=== PATIENT | male | born 2000 | race Caucasian/White ===

== ENCOUNTER 2023-11-11 00:30 | Emergency (ER) | payer SELFPAY ==
[2023-11-11] VITALS (12 sets, daily range): BP systolic 126–136; BP diastolic 83–96; PULSE 90–108; RESP 15–31; TEMP 36.8; O2SAT 94–99; BMI 26.6
--- NOTE | 2023-11-11 00:35 | ECG_ITS ---
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
--- NOTE | 2023-11-11 00:43 | ED.CHESTPAI1 ---
HPI - Chest Pain General Chief Complaint: Chest Pain Stated Complaint: SOB Time Seen by Provider: 11/11/23 00:37 Source: patient Mode of arrival: ambulance Limitations: no limitations History of Present Illness HPI narrative: patient presents complaining of chest pain. States he was seen at [facility] and diagnosed with pneumonia. States he was started on an antibiotic. At work tonight he felt he was worse with increased chest pain and is now brought to the ER by [employer]. No dyspnea, nausea or vomiting Related Data Home Medications Medication Instructions Recorded Confirmed doxycycline hyclate 100 mg capsule 100 mg PO Q12H 11/11/23 11/11/23 Allergies Allergy/AdvReac Type Severity Reaction Status Date / Time clarithromycin [From Biaxin] Allergy Mild Hives Verified 11/11/23 00:31 Review of Systems ROS Status of ROS 10 or more systems reviewed and unremarkable except as noted in history and below [facility] Social History Smoking status: Current some day smoker Exam Constitutional Vital Signs, click to edit/add: Last Vital Signs Temp 98.2 F 11/11/23 00:31 Pulse 103 H 11/11/23 00:31 Resp 18 11/11/23 00:31 BP 126/96 H 11/11/23 00:31 Pulse Ox 97 11/11/23 00:31 O2 Del Method Room Air 11/11/23 00:31 Common normals: no apparent distress, average body habitus, oriented x3, no limitations, healthy appearing, alert and well nourished [facility] Common normals: normocephalic and head/scalp atraumatic Eye Common normals: PERRL, EOMs intact bilaterally and conjunctivae normal Respiratory Common normals: normal respiratory effort, no retractions and no use of accessory muscles Cardio Common normals: regular rate, regular rhythm, S1 normal heart sound and S2 normal heart sound GI Common normals: Normal to inspection, nondistended, normoactive bowel sounds present, soft to palpation and non-tender Extremity Common normals: normal to inspection and full ROM Neuro Common normals: oriented x3, moves all extremities and no focal motor deficits Psych Appearance: grossly normal Course Vital Signs Vital signs: Vital Signs Temperature 98.2 F 11/11/23 00:31 Pulse Rate 103 H 11/11/23 00:31 Respiratory Rate 18 11/11/23 00:31 Blood Pressure 126/96 H 11/11/23 00:31 Pulse Oximetry 97 11/11/23 00:31 Oxygen Delivery Method Room Air 11/11/23 00:31 Temperature 98.2 F 11/11/23 00:31 Pulse Rate 103 H 11/11/23 00:31 Respiratory Rate 18 11/11/23 00:31 Blood Pressure 126/96 H 11/11/23 00:31 Pulse Oximetry 97 11/11/23 00:31 Oxygen Delivery Method Room Air 11/11/23 00:31 MDM - Chest Pain MDM Narrative Medical decision making narrative: patient presents complaining of chest pain. Workup neg including neg. d-dimer, troponin, and normal cxray. patient asymptomatic while here. Discharged home to follow up with his doctor Lab Data Labs: Lab Results 11/11/23 Range/Units 00:35 WBC 8.9 (4.0-11.0) 10^3/uL RBC 5.61 (4.70-6.10) 10^6/uL Hgb 16.2 (14.0-18.0) g/dL Hct 49.7 (42.0-54.0) % MCV 88.6 (80.0-94.0) fL MCH 28.9 (25.9-34.0) pg MCHC 32.6 (29.9-35.2) g/dL RDW 13.3 (11.0-15.0) % Plt Count 260 (150-450) 10^3/uL MPV 10.1 (9.5-13.5) fL Neut % (Auto) 52.5 (43.0-75.0) % Lymph % (Auto) 34.4 (20.5-60.0) % [place] % (Auto) 7.4 (1.7-12.0) % Eos % (Auto) 4.7 (0.9-7.0) % Baso % (Auto) 0.8 (0.2-2.0) % Neut # (Auto) 4.7 (1.4-6.5) 10^3/uL Lymph # (Auto) 3.1 (1.2-3.8) 10^3/uL [place] # (Auto) 0.7 (0.3-0.8) 10^3/uL Eos # (Auto) 0.4 (0.0-0.7) 10^3/uL Baso # (Auto) 0.1 (0.0-0.1) 10^3/uL Abs Immat Gran (auto) 0.02 (0.00-0.03) 10^3/uL Imm/Tot Granulo (auto) 0.2 (0.0-0.5) % D-Dimer <0.19 (<=0.59) mg/L FEU Sodium 143 (136-145) mmol/L Potassium 4.5 (3.5-5.1) mmol/L Chloride 107 (98-107) mmol/L Carbon Dioxide 27.7 (21.0-32.0) mmol/L Anion Gap 12.8 BUN 21.0 H (7.0-18.0) mg/dL Creatinine 1.10 (0.70-1.30) mg/dL Est GFR ( Amer) >60 (>=60) Est GFR (Non-Af Amer) >60 (>=60) BUN/Creatinine Ratio 19.1 Glucose 95 (74-106) mg/dL Calcium 9.6 (8.5-10.1) mg/dL Troponin I High Sens <4.0 L (4.0-76.1) pg/mL Discharge Plan Discharge Chief Complaint: Chest Pain Clinical Impression: Atypical chest pain Patient Disposition: Home, Self-Care Prescriptions / Home Meds: No Action doxycycline hyclate 100 mg capsule 100 mg PO Q12H Instructions: Noncardiac Chest Pain (ED) Stand Alone Forms: Portal Instructions Referrals: SEGUNDO EWING [Primary Care Provider] - 1 week
--- NOTE | 2023-11-11 00:46 | XR_ITS ---
The [address] [address] Patient Name: MAGO HATHAWAY MRN: [id number] date: 2000 Sex: M Assigned Patient Location: ER Current Patient Location: Accession/Order Number: [id number] Exam Date: 11/11/2023 00:55 Report Date: 11/11/2023 01:15 At the request of: COLIN YA Procedure: XR chest 1V EXAMINATION: XR chest 1V HISTORY: chest pain COMPARISON: None. FINDINGS: Low lung volumes. There is no focal airspace consolidation. There is no appreciable pneumothorax or pleural effusion. The pulmonary vascularity is within normal limits for technique. The cardiomediastinal silhouette is within normal limits. XR/XR chest 1V IMPRESSION: Lungs are clear of airspace consolidation. Electronically authenticated by: MIGUEL A RODRIGUEZ Date: 11/11/2023 01:15
[2023-11-11] MEDS: 0.9 % SODIUM CHLORIDE 1,000 ML 999 ML IV (00:54)
[2023-11-11 00:57] LABS: Basophils Absolute Auto 0.1 10^3/uL (0.0-0.1); Basophils Percent Auto 0.8 % (0.2-2.0); Eosinophils Absolute Auto 0.4 10^3/uL (0.0-0.7); Eosinophils Percent Auto 4.7 % (0.9-7.0); Hematocrit 49.7 % (42.0-54.0); Hemoglobin 16.2 g/dL (14.0-18.0); Immature Granulocytes Abs Auto 0.02 10^3/uL (0.00-0.03); Immature Granulocytes Pct Auto 0.2 % (0.0-0.5); Lymphocytes Absolute Auto 3.1 10^3/uL (1.2-3.8); Lymphocytes Percent Auto 34.4 % (20.5-60.0); Mean Corpuscular HGB Conc 32.6 g/dL (29.9-35.2); Mean Corpuscular Hemoglobin 28.9 pg (25.9-34.0); Mean Corpuscular Volume 88.6 fL (80.0-94.0); Mean Platelet Volume 10.1 fL (9.5-13.5); Monocytes Absolute Auto 0.7 10^3/uL (0.3-0.8); Monocytes Percent Auto 7.4 % (1.7-12.0); Neutrophils Absolute Auto 4.7 10^3/uL (1.4-6.5); Neutrophils Percent Auto 52.5 % (43.0-75.0); Platelet Count 260 10^3/uL (150-450); Red Blood Count 5.61 10^6/uL (4.70-6.10); Red Cell Distribution Width 13.3 % (11.0-15.0); White Blood Count 8.9 10^3/uL (4.0-11.0)
[2023-11-11 01:21] LABS: Anion Gap 12.8; BUN Creatinine Ratio 19.1; Calcium 9.6 mg/dL (8.5-10.1); Carbon Dioxide 27.7 mmol/L (21.0-32.0); Chloride 107 mmol/L (98-107); Estimated GFR (African America >60 (>=60); Estimated GFR (Non-African Ame >60 (>=60); Glucose 95 mg/dL (74-106); Potassium 4.5 mmol/L (3.5-5.1); Sodium 143 mmol/L (136-145); Troponin I High Sensitivity <4.0 pg/mL (4.0-76.1)
[2023-11-11 01:22] LABS: D Dimer <0.19 mg/L FEU (<=0.59)
== END 2023-11-11 02:05 | disposition home or self-care (01) ==
PROVIDERS: Emergency Provider Internal Medicine; PCP Family Medicine
DX: R07.89 Other chest pain (principal); F17.200 Nicotine dependence, unspecified, uncomplicated
CPT/HCPCS: 36415; 71045; 80048; 84484; 85025; 85378; 93005; 99285

== ENCOUNTER 2025-01-14 14:03 | Emergency (ER) | payer SELFPAY ==
[2025-01-14 14:06] VITALS: BP 111/74; PULSE 102; TEMP 36.7; O2SAT 96; BMI 28.2
--- NOTE | 2025-01-14 14:16 | ED.URI1 ---
HPI - URI/Sore Throat General Chief Complaint: Upper Respiratory Infection Stated Complaint: SORE THROAT Time Seen by Provider: 01/14/25 14:16 History of Present Illness HPI Narrative: 24 year old male presents to the ED for a sore throat. Onset was Monday01/12/25. Denies fever, chills, congestion, cough, SOB, difficulty swallowing. Pt appears in no acute distress. Pt is declining testing for Covid-19 and influenza. Related Data Previous Rx's ?Medication ?Instructions ?Recorded prednisone 20 mg tablet 40 mg (2 x 20 mg) PO DAILY 5 days 01/14/25 #10 tabs Allergies Allergy/AdvReac Type Severity Reaction Status Date / Time clarithromycin (From Biaxin) Allergy Mild Hives Verified 01/14/25 14:06 Review of Systems ROS Constitutional Denies: fever or chills Ears, nose, mouth, and throat Reports: throat pain; Denies: neck pain, throat swelling, difficulty swallowing, ear pain, ear discharge, nasal discharge or nasal congestion Cardiovascular Denies: chest pain Respiratory Denies: shortness of breath or cough Gastrointestinal Denies: nausea or vomiting Integumentary/Breast Denies: rash PFSH PFSH Social History Smoking status: Current some day smoker Little interest or pleasure in doing things: not at all Feeling down, depressed, or hopeless: not at all Exam Constitutional Vital Signs, click to edit/add: Last Vital Signs Temp 98.1 F 01/14/25 14:06 Pulse 102 H 01/14/25 14:06 Resp 20 01/14/25 14:06 BP 111/74 01/14/25 14:06 Pulse Ox 96 01/14/25 14:06 O2 Del Method Room Air 01/14/25 14:06 Common normals: no apparent distress and oriented x3 General appearance: cooperative HENFL Common normals: external ears normal and moist oral mucous membranes Face and sinus: normal facial exam Nose: no nasal discharge External ear: external ears normal Mouth: oral and palatal mucosa normal, lip normal and tongue normal Throat: uvula midline, posterior oropharynx abnormal erythema; no cobblstoning and no exudates and postnasal drainage Eye Common normals: conjunctivae normal and no scleral icterus Neck & C-Spine Common normals: supple and no meningeal signs Chest Chest: symmetrical chest wall rise Respiratory Common normals: normal respiratory effort and clear to auscultation bilaterally Effort & inspection: able to speak in complete sentences and symmetric chest movement Cardio Common normals: regular rate and regular rhythm Neuro Common normals: oriented x3 and moves all extremities Sensorium/orientation: awake and alert Speech: speech normal Course Vital Signs Vital signs: Vital Signs Temperature 98.1 F 01/14/25 14:06 Pulse Rate 102 H 01/14/25 14:06 Respiratory Rate 20 01/14/25 14:06 Blood Pressure 111/74 01/14/25 14:06 Pulse Oximetry 96 01/14/25 14:06 Oxygen Delivery Method Room Air 01/14/25 14:06 Temperature 98.1 F 01/14/25 14:06 Pulse Rate 102 H 01/14/25 14:06 Respiratory Rate 20 01/14/25 14:06 Blood Pressure 111/74 01/14/25 14:06 Pulse Oximetry 96 01/14/25 14:06 Oxygen Delivery Method Room Air 01/14/25 14:06 MDM - URI/Sore Throat MDM Narrative Medical decision making narrative: Strep screen was negative. Pt declined Covid-19 and influenza testing. Findings were discussed. A prescription was provided for prednisone. Follow up with pcp for a recheck, further evaluation and treatment. Medical Records Attestation: I reviewed the patient's medical records. Lab Data Attestation: I reviewed the patient's lab results. Labs: Lab Results 01/14/25 Range/Units 14:10 Streptococcus Screen Negative Discharge Plan Discharge Chief Complaint: Upper Respiratory Infection Clinical Impression: Acute viral pharyngitis Patient Disposition: Home, Self-Care Time of Disposition Decision: 14:29 Condition: Good Mode of Transportation: Private Vehicle Prescriptions / Home Meds: New prednisone 20 mg tablet 40 mg PO DAILY 5 Days Qty: 10 0RF Print Language: Icelandic Instructions: Pharyngitis (ED) Additional Instructions: Return to the ER for worsening symptoms. Referrals: SEGUNDO EWING [Primary Care Provider] - 1 week
[2025-01-14 14:26] LABS: Internal Control Within Normal Limits; Strep A Antigen Screen Negative
== END 2025-01-14 14:40 | disposition home or self-care (01) ==
PROVIDERS: Emergency Provider Emergency Medicine; PCP Family Medicine
DX: J02.9 Acute pharyngitis, unspecified (principal); F17.200 Nicotine dependence, unspecified, uncomplicated
CPT/HCPCS: 87070; 87880; 99284

== ENCOUNTER 2025-01-31 08:01 | Emergency (ER) | payer SELFPAY ==
[2025-01-31 08:06] VITALS: BP 117/80; PULSE 101; TEMP 36.7; O2SAT 96; BMI 29.1
--- NOTE | 2025-01-31 08:17 | ED.GENADUL1 ---
HPI HPI - General Adult General Chief complaint: Extremity Injury, Lower Stated complaint: Left knee pain Time Seen by Provider: 01/31/25 08:16 Source: patient Mode of arrival: walk-in History of Present Illness HPI narrative: Patient is a 24-year-old male who had injury at work 2 days ago. This is not under Worker's Comp. Patient [id number], that he is at the bottom of a slide, a individual was coming down the slide, and patient had a force that caused a hyperextension to his left knee when the other individual came off a slide and ran into the patient's left knee. Patient has been walking the left knee, he has been hobbling. Patient was supposed to go to work today, he did not, he called off work. 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 Patient is due to work tomorrow, off Monday and Monday. Patient has not injured his left knee previously. Patient did take ibuprofen last evening, not today. No other injury, no other acute complaints besides left knee pain All systems are negative except as noted/marked. All systems reviewed and otherwise negative. Nurses note and vital signs reviewed and patient is not hypoxic. General: The patient appears well and in no apparent distress. Patient is resting comfortably on cart. Patient is not toxic, lethargic, or listless Skin: Warm, dry, no pallor noted. There is no rash noted. No petechiae, purpura. Head: Normocephalic, atraumatic Eye: Normal conjunctiva, no drainage, EOMI. PERRL Ears, Nose, Mouth, and Throat: oral mucosa is moist. Nares patent. Mouth without vesicles. Cardiovascular: Regular Rate and Rhythm, no murmur, gallop, rub Respiratory: Patient is in no distress, no accessory muscle use, lungs are clear to auscultation, no wheezing, rales or rhonchi Back: non-tender, GI: no tenderness Musculoskeletal: Patient has full range of motion of all of the extremities except the left knee. Patient has limited range of motion secondary to pain. Patient has no significant joint effusion. Patient has mild pain with varus and valgus stress. Patient may have mild laxity with anterior drawer sign, normal posterior drawer sign. No joint effusion, no hemarthrosis. Patient is able to actively flex his left knee up to approximately 45 degrees before pain is elicited. Patient does have full range of motion with passive range of motion to left knee of flexion extension with mild to moderate pain., no motor, sensory, or focal neurological deficits Neurological: A&O x4, normal speech Psychiatric: Cooperative Related Data Home Medications ?Medication ?Instructions ?Recorded ?Confirmed No Known Home Medications 01/31/25 01/31/25 Allergies Allergy/AdvReac Type Severity Reaction Status Date / Time clarithromycin (From Biaxin) Allergy Mild Hives Verified 01/14/25 14:06 Opioid HPI Opioid Management Most Recent Opioid Data: Last Pain Scale 5 Today, 08:13 [facility] Social History Smoking status: Current some day smoker Little interest or pleasure in doing things: not at all Feeling down, depressed, or hopeless: not at all Exam Constitutional Vital Signs, click to edit/add: Last Vital Signs Temp 98.1 F 01/31/25 08:06 Pulse 89 01/31/25 09:01 Resp 18 01/31/25 09:01 BP 126/88 01/31/25 09:01 Pulse Ox 98 01/31/25 09:01 O2 Del Method Room Air 01/31/25 08:06 Course Vital Signs Vital signs: Vital Signs Temperature 98.1 F 01/31/25 08:06 Pulse Rate 101 H 01/31/25 08:06 Respiratory Rate 20 01/31/25 08:06 Blood Pressure 117/80 01/31/25 08:06 Pulse Oximetry 96 01/31/25 08:06 Oxygen Delivery Method Room Air 01/31/25 08:06 Temperature 98.1 F 01/31/25 08:06 Pulse Rate 89 01/31/25 09:01 Respiratory Rate 18 01/31/25 09:01 Blood Pressure 126/88 01/31/25 09:01 Pulse Oximetry 98 01/31/25 09:01 Oxygen Delivery Method Room Air 01/31/25 08:06 Medical Decision Making MDM Narrative Medical decision making narrative: Patient seen and examined: Ice, ibuprofen, x-ray will be done. Differential diagnosis includes but is not limited to: Left knee sprain, left knee contusion, left knee ACL sprain, left meniscus tear, Left knee x-ray shows no acute fracture dislocation or acute abnormality, see the official report. Radiological studies: Please see the formal radiological report. Procedure note: Patient was placed in a left knee immobilizer and crutches. Teach and treat. Splint was assisted with . the patient was neurovascularly intact before and after the splint was placed. the affected bones/injured area had proper alignment in a splint. Education on splint care at home was given at bedside. Patient and family have no questions at discharge. Shared decision making: I discussed with the patient the necessary laboratory findings and radiological findings. Social barriers to healthcare: There are no food insecurities, there is no issue with transportation, there are no insurance barriers. Disposition: I discussed with the patient to follow-up with Dr. Arboleda at 1015 on Monday. Patient has an appointment scheduled. Information was given for Dr. Arboleda. Education on RICE therapy and splint care was discussed. Patient will follow-up with PCP, no question at discharge Discharge Plan Discharge Stand Alone Forms: Work/School Release Chief Complaint: Extremity Injury, Lower Clinical Impression: Left knee sprain, Contusion of knee, left Patient Disposition: Home, Self-Care Time of Disposition Decision: 08:57 Condition: Fair Prescriptions / Home Meds: No Action No Known Home Medications Print Language: Swedish Instructions: Knee Sprain (ED), Contusion in Adults (ED), P.R.I.C.E. Treatment (ED), Knee Immobilizer (ED) Additional Instructions: Use ice 20 minutes on, 20 minutes off. Do not use heat. Wear your knee immobilizer at all times besides ice and shower until you see Dr. Arboleda. You have an appointment on Monday, February 03, at 10:[address] Arboleda. Arrive at 1000AM to do paperwork Referrals: Rc Arboleda MD [Physician, Orthopedics] - 1 week SEGUNDO EWING [Primary Care Provider, Family Practice] - 1 week Discharge Date/Time: 01/31/25 09:02
[2025-01-31] MEDS: IBUPROFEN 400 MG TABLET 800 MG PO (08:24)
[2025-01-31 09:01] VITALS: BP 126/88; PULSE 89; O2SAT 98
== END 2025-01-31 09:02 | disposition home or self-care (01) ==
PROVIDERS: Emergency Provider Emergency Medicine; PCP Family Medicine
DX: S80.02XA Contusion of left knee, initial encounter (principal); S83.92XA Sprain of unspecified site of left knee, initial encounter; W51.XXXA Accidental striking against or bumped into by another person, initial encounter; F17.200 Nicotine dependence, unspecified, uncomplicated
CPT/HCPCS: 73564; 99283